=== PATIENT | female | born 1995 | race Caucasian/White ===

== ENCOUNTER 2023-11-28 11:17 | Emergency (ER) | payer OTHER ==
[~2023-11-28] VITALS: Ht 165.1 cm; Wt 111.1 kg
[2023-11-28] MEDS ORDERED: CYCL10TA16 PO (12:53)
[2023-11-28] MEDS ORDERED: IBUP-2070 PO (12:53)
[2023-11-28] MEDS: CYCLOBENZAPRINE HCL 10 MG TABLET PO ONE (15:34)
[2023-11-28] MEDS: IBUPROFEN 600 MG TABLET PO ONE (15:34)
[2023-11-28 15:57] VITALS: BP 148/74; PULSE 62; RESP 18; O2SAT 98
== END 2023-11-28 16:03 | disposition home or self-care (01) ==
LOC: EDH 11:17
DX: S83.8X2A Sprain of other specified parts of left knee, initial encounter (principal); I10 Essential (primary) hypertension; Z90.49 Acquired absence of other specified parts of digestive tract; Z79.899 Other long term (current) drug therapy; Z98.890 Other specified postprocedural states; X50.1XXA Overexertion from prolonged static or awkward postures, initial encounter; Y93.89 Activity, other specified; Y92.89 Other specified places as the place of occurrence of the external cause; Y99.8 Other external cause status
CPT/HCPCS: 73562